=== PATIENT | female | born 1965 | race Caucasian/White ===

== ENCOUNTER 2017-02-06 00:36 | Emergency (ER) | payer MEDICAID ==
[2017-02-06 00:52] VITALS: BP 143/95
--- NOTE | 2017-02-06 01:06 | EDM.PDOC ---
ED HPI Trauma - General Chief Complaint: Lower Extremity Injury/Pain Stated Complaint: RIGHT FOOT INJURY Time Seen by Provider: 02/06/17 00:48 Source: Reports: Patient History Limitations: Reports: No limitations - History of Present Illness INITIAL COMMENTS - FREE TEXT/NARRATIVE: This is a 52-year-old female. She's been having a problem with her left knee and putting more weight on her right leg. This evening when she was walking she felt a pop in the top of her right foot and started having pain. Every time she puts weight on that right foot she has pain in the top of her foot. She denies walking on the side of the foot when this happened her on her toes when this happened. Due to the pain she comes to the ER for evaluation. She denies falling she denies any other acute symptoms at this time with her right foot. Allergies/ADRs: Allergies bee pollen Allergy (Verified 02/06/17 00:52) Hives IV contrast dye Allergy (Uncoded 02/06/17 00:52) Other Home Medications: Ambulatory Orders Diclofenac Sodium [Voltaren 1% Gel] 1 applic TOP DAILY 02/06/17 [Confirmed 02/06] Meloxicam 15 mg PO DAILY 02/06/17 [Confirmed 02/06/17] Past Medical History Musculoskeletal History: Reports: Other (see below) Other Musculoskeletal History: bone spur on knee Social & Family History - Tobacco Use Smoking Status *Q: Current Every Day Smoker Years of Tobacco use: 40 Packs/Tins Daily: 1 - Caffeine Use Caffeine Use: Reports: Soda - Recreational Drug Use Recreational Drug Use: No Review of Systems - Review of Systems Review Of Systems: See Below Constitutional: Reports: no symptoms Eyes: Reports: no symptoms Ears: Reports: no symptoms Nose: Reports: no symptoms Mouth/Throat: Reports: no symptoms Respiratory: Reports: No Symptoms Cardiovascular: Reports: no symptoms GI/Abdominal: Reports: No symptoms Musculoskeletal: Reports: other (As per history of present illness) Skin: Reports: no symptoms Neurological: Reports: No Symptoms Psychiatric: Reports: no symptoms Trauma Exam - Physical Exam Exam: See Below Exam Limited By: No limitations General Appearance: Reports: alert, WD/WN, no apparent distress Head: Reports: normocephalic Ears: Reports: normal external exam Nose: Reports: normal inspection Throat/Mouth: Reports: Normal lips, Normal voice Neck: Reports: full range of motion Respiratory Exam: Reports: no respiratory distress Back: Reports: full range of motion Extremities: Reports: no evidence of injury, other (Right foot she is tender over the base of the metatarsals mid forefoot area, there is no ankle tenderness there is no obvious swelling she is able to move her toes and neurovascular appears to be grossly intact in all of her toes) Neurologic: Reports: alert, normal mood/affect, oriented x 3 Skin: Reports: Normal color, Warm/dry - [place] Coma Score Best Eye Response ([place]): (4) open spontaneously Best Verbal Response ([place]): (5) oriented Best Motor Response ([place]): (6) obeys commands [place] Total: 15 Course - Vital Signs Last Recorded V/S: Last Vital Signs Temp 97.2 F 02/06/17 00:48 Pulse 80 02/06/17 00:48 Resp 18 02/06/17 00:48 BP 143/95 H 02/06/17 00:48 Pulse Ox 97 02/06/17 00:48 - Orders/Labs/Meds Orders: Active Orders 24 hr Category Date Time Status Foot Comp Min 3V Rt [CR] Stat Exams 02/06/17 01:03 Taken - Radiology Interpretation Free Text/Narrative:: Right foot x-ray does not show any acute fractures, she does have degenerative changes and arthritis noted - Re-Assessments/Exams Free Text/Narrative Re-Assessment/Exam: 02/06/17 02:06 I spoke to the patient regarding her x-ray results and encouraged her to stay on the meloxicam to help with the pain. Departure - Departure Time of Disposition: 02:07 Disposition: Home, Self-Care 01 Condition: good Clinical Impression: Right foot pain Arthritis of foot, right, degenerative Qualifiers: Osteoarthritis type: unspecified Qualified Code(s): M19.071 - Primary osteoarthritis, right ankle and foot Referrals: Carlotta Abarca NP [Primary Care Provider] - Rajat Dumont MD [Physician] - Forms: ED Department Discharge Additional Instructions: Be very careful with walking andwalk on your heel instead of your whole foot to ease up on the pain in your forefoot, continue with the Meloxicam to help with the arthritis and foot pain, ice it down and elevate as much as possible over the next 48 hours, if the pain is not easing up in the next 2-[address] Dumont' for reevaluation, return to the ER if needed - My Orders Last 24 Hours: My Active Orders 02/06/17 01:03 Foot Comp Min 3V Rt [CR] Stat - Assessment/Plan Last 24 Hours: My Active Orders 02/06/17 01:03 Foot Comp Min 3V Rt [CR] Stat
--- NOTE | 2017-02-08 10:35 | CR ---
Right foot: Four views of the right foot were obtained. Comparison: No previous foot study. Bunion deformity noted. Mild degenerative change seen within the first MTP joint. Plantar spur is present. Mild degenerative change noted within the midfoot. No acute fracture, dislocation or other bony abnormality is seen. Impression: 1. Bunion deformity, degenerative change and other findings. Diagnostic code #2
== END 2017-02-06 02:19 | disposition home or self-care (01) ==
LOC: JD.ED 00:36
DX: M19.071 Primary osteoarthritis, right ankle and foot (principal); F17.210 Nicotine dependence, cigarettes, uncomplicated; Z91.030 Bee allergy status; Z79.899 Other long term (current) drug therapy; Z91.041 Radiographic dye allergy status
CPT/HCPCS: 73630-26-RT; 73630-RT; 99282; 99283

== ENCOUNTER 2019-07-03 17:33 | Emergency (ER) | payer MEDICAID ==
[2019-07-03 17:45] VITALS: BP 174/91; PULSE 68
[2019-07-03] MEDS ORDERED: Sodium Chloride 0.9% 1,000 ML IV ONE (18:49)
[2019-07-03] MEDS ORDERED: Sodium Chloride 0.9% 10 ML Syringe FLUSH PRN (18:49)
[2019-07-03] MEDS ORDERED: Ondansetron 4 MG/2 ML SDV IVPUSH ONE (18:49)
--- NOTE | 2019-07-03 19:10 | EDM.PDOC ---
ED HPI GENERAL MEDICAL PROBLEM - General Chief Complaint: Gastrointestinal Problem Stated Complaint: CHEST CONGESTION COUGHING/DIARRHEA/VOMITING Time Seen by Provider: 07/03/19 18:08 Source of Information: Reports: Patient History Limitations: Reports: No Limitations - History of Present Illness INITIAL COMMENTS - FREE TEXT/NARRATIVE: Patient is a 54-year-old female who presents to the ED complaining of nausea or vomiting with intermittent chest discomfort with coughing and palpation with chest congestion, productive cough, diarrhea, and poor appetite. Patient states 3 weeks ago she was diagnosed with a sinus infection and placed on an antibiotic with no resolution over the next 3 days. Antibiotic name is unknown. Patient was evaluated 4 days later and tested for strep throat and influenza which came back negative. Patient was placed on Augmentin. Utilized Augmentin for 4 days and then stopped because she she had some allergic reaction-like symptoms: scratchy throat, felt like her throat was swelling shut, and the sensation she cannot breathe. Last took the Augmentin 07/02/2018. She used Benadryl thereafter with resolution. Starting she started developing some diarrhea and some intermittent nausea vomiting. Since then she's been unable to keep anything down. She was evaluated by a nurse practitioner earlier today with concerns that she may be dehydrated with history of poor fluid intake and DM. Patients most recent A1c was 7.1. Patient take victoza and toujeo. She is not taking novalog. Generalized Pain Score (Numeric/FACES): 6 - Related Data Allergies Allergy/AdvReac Type Severity Reaction Status Date / Time bee pollen Allergy Hives Verified 07/03/19 17:45 Iodinated Contrast Media Allergy Airway Verified 07/03/19 17:45 [Iodinated Contrast- Oral Tightness and IV Dye] IV contrast dye Allergy Severe Airway Uncoded 07/03/19 22:59 Tightness Home Meds: Home Meds Diclofenac Sodium [Voltaren 1% Gel] 1 applic TOP DAILY 02/06/17 [History] Meloxicam 15 mg PO DAILY 02/06/17 [History] Past Medical History Musculoskeletal History: Reports: Other (See Below) Other Musculoskeletal History: bone spur on knee Endocrine/Metabolic History: Reports: Diabetes, Type II Social & Family History - Tobacco Use Smoking Status *Q: Current Every Day Smoker Years of Tobacco use: 25 Packs/Tins Daily: 0.5 - Caffeine Use Caffeine Use: Reports: Soda ED ROS GENERAL - Review of Systems Review Of Systems: ROS reveals no pertinent complaints other than HPI. ED EXAM, GI/ABD - Physical Exam Exam: See Below Exam Limited By: No Limitations General Appearance: Alert, WD/WN, No Apparent Distress Ears: Normal External Exam, Normal Canal, Hearing Grossly Normal Nose: Normal Inspection Throat/Mouth: Normal Inspection, Normal Oropharynx, Normal Voice, No Airway Compromise Head: Atraumatic, Normocephalic Neck: Normal Inspection, Supple, Non-Tender, Full Range of Motion Respiratory/Chest: No Respiratory Distress, Lungs Clear, Normal Breath Sounds, No Accessory Muscle Use, Chest Non-Tender Cardiovascular: Normal Peripheral Pulses, Regular Rate, Rhythm GI/Abdominal Exam: Normal Bowel Sounds, Soft, Non-Tender, No Organomegaly Back Exam: Normal Inspection. No: CVA Tenderness (L), CVA Tenderness (R) Extremities: Normal Inspection Neurological: Alert, Oriented, CN II-XII Intact, Normal Cognition, No Motor/ Sensory Deficits Psychiatric: Normal Affect, Normal Mood Skin Exam: Warm, Dry, Intact, Normal Color, No Rash Course - Vital Signs Last Recorded V/S: Last Vital Signs Temp 97.5 F 07/03/19 17:39 Pulse 68 07/03/19 17:39 Resp 16 07/03/19 17:39 BP 174/91 H 07/03/19 17:39 Pulse Ox 98 07/03/19 17:39 - Orders/Labs/Meds Labs: Laboratory Tests 07/03/19 07/03/19 07/03/19 Range/Units 18:45 18:45 18:45 WBC 7.69 (3.98-10.04) K/mm3 RBC 4.15 (3.98-5.22) M/mm3 Hgb 14.1 (11.2-15.7) gm/dl Hct 39.5 (34.1-44.9) % MCV 95.2 H (79.4-94.8) fl MCH 34.0 H (25.6-32.2) pg MCHC 35.7 H (32.2-35.5) g/dl RDW Std Deviation 42.0 (36.4-46.3) fL Plt Count 308 (182-369) K/mm3 MPV 9.4 (9.4-12.3) fl Neutrophils % (Manual) 52 (40-60) % Band Neutrophils % 0 (0-10) % Lymphocytes % (Manual) 32 (20-40) % Atypical Lymphs % 0 % Monocytes % (Manual) 7 (2-10) % Eosinophils % (Manual) 7 H (0.7-5.8) % Basophils % (Manual) 2 H (0.1-1.2) Platelet Estimate Adequate RBC Morph Comment Normal Sodium 141 (136-145) mEq/L Potassium 3.5 (3.5-5.1) mEq/L Chloride 102 (98-107) mEq/L Carbon Dioxide 31 (21-32) mEq/L Anion Gap 11.5 (5-15) BUN 16 (7-18) mg/dL Creatinine 0.9 (0.55-1.02) mg/dL Est Cr Clr Drug Dosing 69.49 mL/min Estimated GFR (MDRD) > 60 (>60) mL/min BUN/Creatinine Ratio 17.8 (14-18) Glucose 159 H (74-106) mg/dL Calcium 9.1 (8.5-10.1) mg/dL Total Bilirubin 0.3 (0.2-1.0) mg/dL AST 12 L (15-37) U/L ALT 24 (14-59) U/L Alkaline Phosphatase 83 (46-116) U/L Troponin I < 0.017 (0.00-0.056) ng/mL C-Reactive Protein < 0.2 (<1.0) mg/dL Total Protein 6.9 (6.4-8.2) g/dl Albumin 3.8 (3.4-5.0) g/dl Globulin 3.1 gm/dL Albumin/Globulin Ratio 1.2 (1-2) Lipase 128 (73-393) U/L Urine Color Yellow (Yellow) Urine Appearance Clear (Clear) Urine pH 6.5 (5.0-8.0) Ur Specific [place] 1.020 (1.005-1.030) Urine Protein Negative (Negative) Urine Glucose (UA) Negative (Negative) Urine Ketones Negative (Negative) Urine Occult Blood Negative (Negative) Urine Nitrite Negative (Negative) Urine Bilirubin Negative (Negative) Urine Urobilinogen 0.2 (0.2-1.0) Ur Leukocyte Esterase Negative (Negative) Urine RBC 0-5 (0-5) /hpf Urine WBC 0-5 (0-5) /hpf Ur Squamous Epith Cells 0-5 (0-5) /hpf Urine Bacteria Few (FEW) /hpf Urine Mucus Not seen (FEW) /hpf C.difficile [id number] C. difficile Tox (PCR) 07/03/19 Range/Units 19:20 WBC (3.98-10.04) K/mm3 RBC (3.98-5.22) M/mm3 Hgb (11.2-15.7) gm/dl Hct (34.1-44.9) % MCV (79.4-94.8) fl MCH (25.6-32.2) pg MCHC (32.2-35.5) g/dl RDW Std Deviation (36.4-46.3) fL Plt Count (182-369) K/mm3 MPV (9.4-12.3) fl Neutrophils % (Manual) (40-60) % Band Neutrophils % (0-10) % Lymphocytes % (Manual) (20-40) % Atypical Lymphs % % Monocytes % (Manual) (2-10) % Eosinophils % (Manual) (0.7-5.8) % Basophils % (Manual) (0.1-1.2) Platelet Estimate RBC Morph Comment Sodium (136-145) mEq/L Potassium (3.5-5.1) mEq/L Chloride (98-107) mEq/L Carbon Dioxide (21-32) mEq/L Anion Gap (5-15) BUN (7-18) mg/dL Creatinine (0.55-1.02) mg/dL Est Cr Clr Drug Dosing mL/min Estimated GFR (MDRD) (>60) mL/min BUN/Creatinine Ratio (14-18) Glucose (74-106) mg/dL Calcium (8.5-10.1) mg/dL Total Bilirubin (0.2-1.0) mg/dL AST (15-37) U/L ALT (14-59) U/L Alkaline Phosphatase (46-116) U/L Troponin I (0.00-0.056) ng/mL C-Reactive Protein (<1.0) mg/dL Total Protein (6.4-8.2) g/dl Albumin (3.4-5.0) g/dl Globulin gm/dL Albumin/Globulin Ratio (1-2) Lipase (73-393) U/L Urine Color (Yellow) Urine Appearance (Clear) Urine pH (5.0-8.0) Ur Specific [place] (1.005-1.030) Urine Protein (Negative) Urine Glucose (UA) (Negative) Urine Ketones (Negative) Urine Occult Blood (Negative) Urine Nitrite (Negative) Urine Bilirubin (Negative) Urine Urobilinogen (0.2-1.0) Ur Leukocyte Esterase (Negative) Urine RBC (0-5) /hpf Urine WBC (0-5) /hpf Ur Squamous Epith Cells (0-5) /hpf Urine Bacteria (FEW) /hpf Urine Mucus (FEW) /hpf C.difficile [id number] Presumptive negative C. difficile Tox (PCR) Negative Meds: Medications Discontinued Medications Generic Name Dose Route Start Last Admin Trade Name Freq PRN Reason Stop Dose Admin Sodium Chloride 1,000 mls @ 500 mls/hr 07/03/19 18:49 07/03/19 19:23 Normal Saline IV 07/03/19 20:48 500 mls/hr ONETIME ONE Administration Ondansetron HCl 4 mg 07/03/19 18:49 07/03/19 19:23 Zofran IVPUSH 07/03/19 18:50 4 mg ONETIME ONE Administration Sodium Chloride 10 ml 07/03/19 18:49 07/03/19 19:23 Saline Flush FLUSH 10 ml ASDIRECTED PRN Administration Keep Vein Open - Re-Assessments/Exams Free Text/Narrative Re-Assessment/Exam: On exam patient does not appear in acute distress. Blood pressure 174/91, heart rate 68, temperature is 97.5, resp rate 16, SPO2 90% on room air. On exam she has no abdominal pain and lungs are clear to auscultation. Oral mucosal is moist. IV will be established with normal saline IV fluids, Zofran 4 mg IVP. Initial labs and studies include: CBC, chem 14, CRP, stool WBCs, C. difficile, lipase, troponin, UA, chest x-ray two-view, and EKG. EKG sinus rhythm rate of 65 with NE interval 118 and QTC of 489. No acute ST changes noted. CXR reviewed with Dr. Shelton. No acute findings noted. Final interpretation is pending. Labs reviewed: CBC was essentially normal. Chem 14 was essentially normal as well minus glucose 159. Troponin CRP and normal. Lipase normal. UA was negative. Stool WBCs few present. C. difficile is pending. 07/03/19 22:20 C. difficile came back negative. 2221 Reassessment, patient's vital signs are stable. She states she has some abdominal cramping. No pain. Nausea has subsided. Patient will be allowed to eat some crackers while in the emergency department. I'll discharge her home with instructions to follow-up with PCP. Suspect this is viral in etiology and will have to run its course. Per patient she has appointment scheduled for tomorrow with PCP. Return precautions were discussed with the patient. She had no further questions or concerns and agree with plan. Discharge instructions as documented. Departure - Departure Time of Disposition: 22:24 Disposition: Home, Self-Care 01 Condition: Good Clinical Impression: Diarrhea, Gastroenteritis Nausea & vomiting Qualifiers: Vomiting type: unspecified Vomiting Intractability: non-intractable Qualified Code(s): R11.2 - Nausea with vomiting, unspecified - Discharge Information Instructions: Diarrhea, Adult, Viral Gastroenteritis, Adult, [id number], Food Choices to Help Relieve Diarrhea, Adult, Dehydration, Adult, [id number], Nausea and Vomiting, Adult, Probiotics Referrals: Na Cuenca MD [Primary Care Provider] - Forms: ED Department Discharge, ED Return to Work/School Form Additional Instructions: Keep appt with PCP as scheduled for tomorrow. Stick with clear liquid diet for the next 48 hrs. May advance diet to low residue diet thereafter as tolerated. Read educational material on foods to eat with diarrhea. Utilize zofran as prescribed for nausea/vomiting. Please return to the ED as needed for any new or worsening symptoms. Stool cultures have been obtained. Please see PCP in the next 48 hours for results.
--- NOTE | 2019-07-04 08:58 | CR ---
Chest: Two views of the chest were obtained. Comparison: No prior chest x-rays available. Heart size and mediastinum are normal. Lungs are clear. Bony structures are unremarkable. Impression: 1. Nothing acute is seen on two-view chest x-ray. Diagnostic code #1
== END 2019-07-03 22:39 | disposition home or self-care (01) ==
LOC: JD.ED 17:33
DX: K52.9 Noninfective gastroenteritis and colitis, unspecified (principal); E11.9 Type 2 diabetes mellitus without complications; F17.210 Nicotine dependence, cigarettes, uncomplicated; Z79.899 Other long term (current) drug therapy; Z91.041 Radiographic dye allergy status; Z91.030 Bee allergy status
CPT/HCPCS: 36415; 71046; 80053; 81001; 83690; 84484; 85007; 85027; 86140; 87046; 87493; 89055; 93005; 96361; 96374; 99284; J2405; J7040; 87427; 99283

== ENCOUNTER 2021-09-01 17:25 | Emergency (ER) | payer MEDICAID ==
[2021-09-01] MEDS ORDERED: Sodium Chloride 0.9% 10 ML Syringe FLUSH PRN (18:29)
[2021-09-01] MEDS ORDERED: Labetalol 100 MG/20 ML MDV IVPUSH ONE (18:40)
--- NOTE | 2021-09-01 18:48 | EDM.PDOC ---
<Rahat Norris Ivan - Last Filed: 09/01/21 18:56> ED HPI GENERAL MEDICAL PROBLEM - General Chief Complaint: Cardiovascular Problem Stated Complaint: HIGH BLOOD PRESSURE Time Seen by Provider: 09/01/21 18:16 Source of Information: Reports: Patient, Provider, RN Notes Reviewed - History of Present Illness INITIAL COMMENTS - FREE TEXT/NARRATIVE: 56 yr old female sent from [facility] with concerns about Blanco, Htn for 3 to 4 days. Pt states she was changed to "short acting insulin" about 5 days ago and since that time she has been aware of Blanco, generalized achiness and inc reased BP readings. Chest feels mildly tight today. States distal legs have also been holding some fluid. Has been on meds for Htn for many yrs. Headache Pain Score (Numeric/FACES): 8 - Related Data Allergies Allergy/AdvReac Type Severity Reaction Status Date / Time metformin Allergy Unknown Other Verified 09/01/21 18:13 bee pollen Allergy Hives Verified 09/01/21 18:13 Iodinated Contrast Media Allergy Airway Verified 09/01/21 18:13 [Iodinated Contrast- Oral Tightness and IV Dye] rosuvastatin [From Crestor] Allergy Dizziness Verified 09/01/21 18:13 IV contrast dye Allergy Severe Airway Uncoded 07/03/19 22:59 Tightness Home Meds: Home Meds Diclofenac Sodium [Voltaren 1% Gel] 1 applic TOP DAILY 02/06/17 [History] Meloxicam 15 mg PO DAILY 02/06/17 [History] Acetaminophen 500 mg PO 02/23/20 [History] Alpha Lipoic Acid 600 mg PO 02/23/20 [History] Aspirin 81 mg PO DAILY 02/23/20 [History] Benzoyl Peroxide/Clindamycin [BenzaClin Gel] 1 applic TOP BID 02/23/20 [History] Blood Sugar Diagnostic [Contour] 1 each 02/23/20 [History] Cholestyramine/Sucrose [Cholestyramine Packet] 4 gm PO 02/23/20 [History] Fluticasone Propionate [Flonase] 50 mcg 02/23/20 [History] Insulin Aspart [NovoLOG] 0 unit WITHMEALSANDBED 02/23/20 [History] Insulin Detemir [Levemir Flextouch] 100 unit SQ 02/23/20 [History] Lancets [Microlet] 1 each MC 02/23/20 [History] Liraglutide [Victoza 3-Chaz] 18 mg .XX 02/23/20 [History] Ondansetron [Zofran] 4 mg PO Q6H 02/23/20 [History] Pen Needle, Diabetic [Ulticare Pen Needle] 1 each 02/23/20 [History] atorvaSTATin [Lipitor] 10 mg PO BEDTIME 02/23/20 [History] hydrOXYzine HCL [Atarax] 25 mg PO DAILY 02/23/20 [History] lisinopriL [Prinivil] 15 mg PO DAILY 02/23/20 [History] methylPREDNISolone [Methylprednisolone] 16 mg PO 02/23/20 [History] Past Medical History Musculoskeletal History: Reports: Other (See Below) Other Musculoskeletal History: bone spur on knee Endocrine/Metabolic History: Reports: Diabetes, Type II Social & Family History - Caffeine Use Caffeine Use: Reports: Soda ED ROS GENERAL - Review of Systems Review Of Systems: See Below Constitutional: Reports: Malaise, Fatigue. Denies: Fever, Chills HEENT: Reports: No Symptoms Respiratory: Denies: Shortness of Breath, Cough Cardiovascular: Reports: Chest Pain, Edema (mild distal leg) GI/Abdominal: Denies: Abdominal Pain, Nausea, Vomiting Musculoskeletal: Denies: Shoulder Pain, Arm Pain, Back Pain Skin: Reports: No Symptoms Neurological: Reports: Headache. Denies: Trouble Speaking, Weakness, Gait Disturbance ED EXAM, GENERAL - Physical Exam Exam: See Below General Appearance: Alert, No Apparent Distress Eye Exam: Bilateral Eye: PERRL, Other (R eye deviates to R, pt states this is normal for her) Throat/Mouth: Normal Inspection Head: Atraumatic Neck: Supple, Other (no JVD) Respiratory/Chest: No Respiratory Distress, Lungs Clear, Normal Breath Sounds Cardiovascular: Regular Rate, Rhythm GI/Abdominal: Soft, Non-Tender. No: Guarding Extremities: Pedal Edema (mild bilat distal leg and ankle) Neurological: Alert, Oriented, No Motor/Sensory Deficits Skin Exam: Warm, Dry, Normal Color #1 Interpretation EKG Date: 09/01/21 Rhythm: NSR P-Wave: Present QRS: Normal ST-T: Other (mild t wave flattening mult leads) Course - Re-Assessments/Exams Free Text/Narrative Re-Assessment/Exam: 09/01/21 19:05. Have ordered appropriate labs, labetalol 20 mg IV. We are now at change of shift, will be awhile before labs are back, will transfer care to Dr Mario at this time. Departure - Departure Disposition: Home, Self-Care 01 Clinical Impression: Elevated blood pressure reading Referrals: Na Cuenca MD [Primary Care Provider] - Forms: ED Department Discharge Additional Instructions: You were seen in the emergency room for 3 to 4 days of a headache with elevated blood pressure. Work-up in the ER included several blood tests, a chest x-ray, and an ECG. Your entire work-up was unremarkable. You are not anemic. There is no sign of an infection. No electrolyte abnormalities were found. Your ECG was normal. Your chest x-ray was normal. You were treated with the IV blood pressure medication labetalol in the ER. Your most recent blood pressure is down to 150/90. Going forward, we recommend that you check your blood pressure only 2-3 times a week, and only under restful conditions = you have been sitting for at least 5, and preferably 15 minutes, that the arm that you are checking your blood pressure in is supported, with the blood pressure cuff at the height of your heart, and you are not in pain, you are not sick, and you are not anxious. Write the numbers down. Continue this for 2 to 3 weeks, then present those numbers to your PCP when you follow-up. At that time, she can decide if modification of your blood pressure and medications requires modification. You may take [id number] acetaminophen as needed for discomfort. If any other problems, please do not hesitate to return to the ER. Sepsis Event Note (ED) - Evaluation Sepsis Screening Result: No Definite Risk <Silverio Mario - Last Filed: 09/01/21 21:24> Course - Vital Signs Last Recorded V/S: Last Vital Signs Temp 36.2 C 09/01/21 18:13 Pulse 69 09/01/21 19:13 Resp 18 09/01/21 18:13 BP 181/93 H 09/01/21 19:13 Pulse Ox 98 09/01/21 19:13 - Orders/Labs/Meds Orders: Active Orders 24 hr Category Date Time Status Peripheral IV Care [RC] . DIRECTED Care 09/01/21 18:30 Active Sodium Chloride 0.9% [Saline Flush] Med 09/01/21 18:29 Active 10 ml FLUSH ASDIRECTED PRN Peripheral IV Insertion Adult [OM.PC] Stat Oth 09/01/21 18:30 Ordered Medication Orders Sodium Chloride (Sodium Chloride 0.9% 10 Ml Syringe) 10 ml FLUSH ASDIRECTED PRN PRN Reason: Keep Vein Open Last Admin: 09/01/21 18:53 Dose: 10 ml Documented by: MORRO Labs: Laboratory Tests 09/01/21 09/01/21 Range/Units 18:44 18:44 WBC 7.87 (3.98-10.04) K/mm3 RBC 3.78 L (3.98-5.22) M/mm3 Hgb 12.8 (11.2-15.7) gm/dl Hct 38.5 (34.1-44.9) % MCV 101.9 H D (79.4-94.8) fl MCH 33.9 H (25.6-32.2) pg MCHC 33.2 (32.2-35.5) g/dl RDW Std Deviation 45.1 (36.4-46.3) fL Plt Count 258 (182-369) K/mm3 MPV 9.6 (9.4-12.3) fl Neut % (Auto) 52.0 (34.0-71.1) % Lymph % (Auto) 32.4 (19.3-51.7) % [place] % (Auto) 9.8 (4.7-12.5) % Eos % (Auto) 5.0 (0.7-5.8) Baso % (Auto) 0.8 (0.1-1.2) % Neut # (Auto) 4.10 (1.56-6.13) K/mm3 Lymph # (Auto) 2.55 (1.18-3.74) K/mm3 [place] # (Auto) 0.77 H (0.24-0.36) K/mm3 Eos # (Auto) 0.39 H (0.04-0.36) K/mm3 Baso # (Auto) 0.06 (0.01-0.08) K/mm3 Sodium 145 (136-145) mEq/L Potassium 3.5 (3.5-5.1) mEq/L Chloride 109 H (98-107) mEq/L Carbon Dioxide 32 (21-32) mEq/L Anion Gap 7.5 (5-15) BUN 12 (7-18) mg/dL Creatinine 0.8 (0.55-1.02) mg/dL Est Cr Clr Drug Dosing TNP Estimated GFR (MDRD) > 60 (>60) mL/min BUN/Creatinine Ratio 15.0 (14-18) Glucose 83 (70-99) mg/dL Calcium 8.5 (8.5-10.1) mg/dL Total Bilirubin 0.3 (0.2-1.0) mg/dL AST 21 (15-37) U/L ALT 30 (14-59) U/L Alkaline Phosphatase 66 (46-116) U/L Troponin I < 0.017 (0.00-0.056) ng/mL Total Protein 6.4 (6.4-8.2) g/dl Albumin 3.4 (3.4-5.0) g/dl Globulin 3.0 gm/dL Albumin/Globulin Ratio 1.1 (1-2) Meds: Medications Generic Name Dose Route Start Last Admin Trade Name Freq PRN Reason Stop Dose Admin Sodium Chloride 10 ml 09/01/21 18:29 09/01/21 18:53 Sodium Chloride 0.9% 10 Ml Syringe FLUSH 10 ml ASDIRECTED PRN Administration Keep Vein Open Discontinued Medications Generic Name Dose Route Start Last Admin Trade Name Freq PRN Reason Stop Dose Admin Labetalol HCl 20 mg 09/01/21 18:40 09/01/21 18:52 Labetalol 100 Mg/20 Ml Mdv IVPUSH 09/01/21 18:41 20 mg ONETIME ONE Administration Protocol - Re-Assessments/Exams Free Text/Narrative Re-Assessment/Exam: 09/01/21 21:[address] Norris, for change of shift. I agree with his history and physical examination as documented. Portable chest x-ray is read by Dr. Engle as: 1. Nothing acute is seen on portable chest x-ray. The patient's CBC is unremarkable. Her CMP is unremarkable. Her troponin is undetectably low. At present, the patient's BP is 150/90, with a HR of 9 bpm. Her SpO2 is 98% on room air. 09/01/21 21:16 Test results discussed with the patient. I will discharge her home with the recommendation that she check her blood pressure 2-3 times a week, and only under restful conditions, with the arm that the blood pressure cuff is on being supported, with the blood pressure cuff at the height of her heart. She is to write, and only under restful conditions. She is to write the numbers down, and after a few weeks, presented to her PCP when she follows up. At that time, they can decide if her current blood pressure medication regimen requires modification. The patient expressed understanding. Departure - Departure Time of Disposition: 21:17 Condition: Good Sepsis Event Note (ED) - Focused Exam Vital Signs: Vital Signs Temp Pulse Resp BP Pulse Ox 09/01/21 19:13 69 181/93 H 98 09/01/21 18:13 36.2 C 68 18 204/101 H 99
[2021-09-01 19:14] VITALS: BP 181/93; PULSE 69
--- NOTE | 2021-09-01 20:17 | CR ---
Chest: Portable view of the chest was obtained. Comparison: Prior chest x-ray on 07/03/19. Heart size and mediastinum are normal. Lungs are clear. Bony structures show nothing acute. Impression: 1. Nothing acute is seen on portable chest x-ray. Diagnostic code #1
[2021-09-01] MEDS ORDERED: LORazepam 1 MG Tab PO ONE (21:01)
== END 2021-09-01 21:35 | disposition home or self-care (01) ==
LOC: JD.ED 17:25
DX: I10 Essential (primary) hypertension (principal); E11.9 Type 2 diabetes mellitus without complications; Z91.030 Bee allergy status; Z91.041 Radiographic dye allergy status; Z88.8 Allergy status to other drugs, medicaments and biological substances; Z79.82 Long term (current) use of aspirin; Z79.899 Other long term (current) drug therapy
CPT/HCPCS: 36415; 71045; 80053; 84484; 85025; 93005; 96374; 99284; J3490

== ENCOUNTER 2024-05-03 13:56 | Inpatient (IN) | payer SELFPAY ==
[2024-05-03 15:33] LABS: BASOPHILS ABSOLUTE AUTO 0.1 K/mm3 (0.0-0.2); BASOPHILS PERCENT AUTO 0.6 % (0.0-1.0); EOSINOPHILS ABSOLUTE AUTO 0.2 K/mm3 (0.0-0.4); EOSINOPHILS PERCENT AUTO 2.5 % (0.0-6.0); HEMATOCRIT 31.6 % (37.0-47.0); HEMOGLOBIN 11.3 gm/dl (12.0-16.0); IMMATURE GRAN ABSOLUTE AUTO 0.01 K/mm3 (0.00-0.05); IMMATURE GRAN PERCENT AUTO 0.1 % (0.0-0.4); LYMPHOCYTES ABSOLUTE AUTO 0.6 K/mm3 (1.0-4.8); LYMPHOCYTES PERCENT AUTO 7.1 % (24.0-44.0); MEAN CORPUSCULAR HEMOGLOBIN 33.4 pg (28.0-32.0); MEAN CORPUSCULAR HGB CONC 35.8 g/dl (32.0-36.0); MEAN CORPUSCULAR VOLUME 93.5 fl (83.0-99.0); MEAN PLATELET VOLUME 8.6 fl (9.4-12.3); MONOCYTES ABSOLUTE AUTO 0.7 K/mm3 (0.0-0.8); MONOCYTES PERCENT AUTO 8.1 % (0.0-8.0); NEUTROPHILS ABSOLUTE AUTO 6.9 K/mm3 (1.8-7.7); NEUTROPHILS PERCENT AUTO 81.6 % (41.0-71.0); PLATELET COUNT,PLT 267 K/mm3 (150-400); RED BLOOD CELL COUNT 3.38 M/mm3 (4.10-5.30); WHITE BLOOD CELL COUNT,WBC 8.41 K/mm3 (3.9-11.3)
[2024-05-03] MEDS: Diphtheria,Pertussis(Acell),Tetanus Vaccine 0.5 ML Syringe IM ONE (15:49)
[2024-05-03 16:06] LABS: APPEARANCE,URINE SLT CLOUDY (Clear); BILIRUBIN,URINE NEGATIVE (Negative); COLOR,URINE YELLOW (Yellow); GLUCOSE,URINE NEGATIVE (Negative); KETONES,URINE 1+ (Negative); LEUKOCYTE ESTERASE,URINE 1+ (Negative); NITRITE,URINE NEGATIVE (Negative); OCCULT BLOOD,URINE TRACE-LYSED (Negative); PROTEIN,URINE TRACE (Negative); UROBILINOGEN,URINE 0.2 (0.2-1.0)
[2024-05-03 16:10] LABS: A/G RATIO 0.9 (1-2); ALBUMIN 3.1 g/dl (3.4-5.0); ANION GAP 10.7 (5-15); BILIRUBIN TOTAL 0.5 mg/dL (0.2-1.0); BUN/CREATININE RATIO 14.5 (14-18); CALCIUM 8.9 mg/dL (8.5-10.1); CREATININE 1.1 mg/dL (0.55-1.02); EST CRCL DRUG DOSING (CG) 53.55 mL/min; MAGNESIUM 1.7 mg/dL (1.8-2.4); POTASSIUM,K 2.7 mEq/L (3.5-5.1); PROTEIN TOTAL,TP 6.5 g/dl (6.4-8.2)
[2024-05-03 16:15] LABS: BARBITURATE SCREEN,URINE NEGATIVE (CUTOFF=200); BENZODIAZEPINES SCREEN,URINE NEGATIVE (CUTOFF=150); BUPRENORPHINE SCREEN,URINE NEGATIVE (CUTOFF=10); METHADONE SCREEN, URINE NEGATIVE (CUTOFF=200); METHAMPHETAMINES SCREEN, URINE NEGATIVE (CUTOFF=500); OXYCODONE SCREEN,URINE NEGATIVE (CUT0FF=100); THC SCREEN,URINE 20 NG/ML NEGATIVE (CUTOFF=50)
[2024-05-03 16:18] LABS: BACTERIA,URINE MODERATE /hpf (FEW); MUCUS,URINE MODERATE /hpf (FEW); RBC,URINE 0-5 /hpf (0-5)
[2024-05-03 16:28] LABS: AMPHETAMINES SCREEN, URINE NEGATIVE (CUTOFF=500)
[2024-05-03] MEDS: Sodium Chloride 0.9% 1,000 ML IV ONE (17:18)
[2024-05-03] MEDS: Potassium Chloride 20 MEQ Tab.ER PO ONE (17:21)
[2024-05-03] MEDS: Potassium Chloride 10 MEQ in Premix Bag 1 BAG IV ONE ×6 (17:22→22:07)
[2024-05-03] MEDS: cefTRIAXone 1 GM in Sodium Chloride 0.9% 100 ML IV ONE (17:28)
[2024-05-03] MEDS: Magnesium Sulfate (4.06 MEQ/ML) 5 GM/10 ML SDV IV ONE (18:12)
[2024-05-03] MEDS: Magnesium Sulfate/Water 50 ML ONE (18:12)
[2024-05-03] MEDS: Magnesium Sulfate/Water 2 GM in Premix Bag 1 BAG IV ONE (18:13)
[2024-05-03] MEDS ORDERED: Gabapentin 100 MG Cap PO PRN ×2 (18:47→18:49)
[2024-05-03] MEDS ORDERED: Sennosides/Docusate Sodium 50-8.6 MG Tab PO PRN (19:11)
[2024-05-03] MEDS ORDERED: Ondansetron 4 MG Tab.DIS PO PRN (19:11)
[2024-05-03] MEDS: Nicotine 14 MG/24 Hr Patch TRDERM SCH ×2 (21:14→21:17)
[2024-05-03] MEDS: Insulin Lispro 100 Unit/ML 3 ML KwikPen SUBCUT SCH (21:15)
[2024-05-03] MEDS: Morphine 2 MG/ML SYRINGE IVPUSH PRN (22:03)
[2024-05-04 04:55] LABS: HEMATOCRIT 31.4 % (37.0-47.0); HEMOGLOBIN 11.1 gm/dl (12.0-16.0); MEAN CORPUSCULAR HEMOGLOBIN 32.7 pg (28.0-32.0); MEAN CORPUSCULAR HGB CONC 35.4 g/dl (32.0-36.0); MEAN CORPUSCULAR VOLUME 92.6 fl (83.0-99.0); MEAN PLATELET VOLUME 9.1 fl (9.4-12.3); PLATELET COUNT,PLT 275 K/mm3 (150-400); RED BLOOD CELL COUNT 3.39 M/mm3 (4.10-5.30); WHITE BLOOD CELL COUNT,WBC 6.31 K/mm3 (3.9-11.3)
[2024-05-04 05:38] LABS: A/G RATIO 0.8 (1-2); ALBUMIN 2.8 g/dl (3.4-5.0); ANION GAP 11.2 (5-15); BILIRUBIN TOTAL 0.4 mg/dL (0.2-1.0); CALCIUM 8.6 mg/dL (8.5-10.1); EST CRCL DRUG DOSING (CG) 58.91 mL/min; POTASSIUM,K 3.2 mEq/L (3.5-5.1); PROTEIN TOTAL,TP 6.3 g/dl (6.4-8.2); TSH 1.33 uIU/mL (0.358-3.74)
[2024-05-04] MEDS: oxyCODONE 5 MG Tab PO PRN (07:43)
[2024-05-04] MEDS: Potassium Chloride 20 MEQ Tab.ER PO ONE (07:43)
[2024-05-04] MEDS: Enoxaparin 40 MG/0.4 ML Syringe SUBCUT SCH (11:03)
[2024-05-04] MEDS ORDERED: tiZANidine 4 MG Tab PO PRN (17:10)
[2024-05-04] MEDS ORDERED: Dicyclomine 10 MG Cap PO PRN (17:10)
[2024-05-04] MEDS ORDERED: hydrOXYzine HCl 25 MG Tab PO PRN (17:10)
[2024-05-04] MEDS ORDERED: [UNRECOGNIZED DRUG - OTHER] PO SCH (17:15)
[2024-05-04] MEDS ORDERED: Hydrochlorothiazide 25 MG Tab PO SCH (17:15)
[2024-05-04] MEDS: Sertraline 50 MG Tab PO SCH (17:36)
[2024-05-04] MEDS: Gabapentin 300 MG Cap PO SCH (17:36)
[2024-05-04] MEDS: Aspirin 81 MG Tab.Chew PO SCH (17:37)
[2024-05-04] MEDS: Lisinopril 10 MG Tab PO SCH (17:37)
[2024-05-04] MEDS: Anastrozole 1 MG Tab PO SCH (17:38)
[2024-05-04] MEDS: atorvaSTATin 40 MG Tab PO SCH (20:29)
[2024-05-04] MEDS: Melatonin 3 MG Tab PO PRN (20:29)
[2024-05-04] MEDS ORDERED: atorvaSTATin 20 MG Tab PO SCH (21:00)
[2024-05-05] MEDS: Acetaminophen 325 MG Tab PO PRN (04:37)
[2024-05-05 05:28] LABS: ANION GAP 12.9 (5-15); BUN/CREATININE RATIO 15.6 (14-18); CALCIUM 8.6 mg/dL (8.5-10.1); CREATININE 0.9 mg/dL (0.55-1.02); EST CRCL DRUG DOSING (CG) 65.45 mL/min; MAGNESIUM 1.6 mg/dL (1.8-2.4); POTASSIUM,K 3.9 mEq/L (3.5-5.1)
[2024-05-05] MEDS: Potassium Chloride 20 MEQ Tab.ER PO ONE (11:19)
[2024-05-05] MEDS: Magnesium Sulfate/Water 2 GM in Premix Bag 1 BAG IV ONE (11:19)
[2024-05-05 16:43] VITALS: BP 143/74; PULSE 60
== END 2024-05-05 14:25 | disposition home or self-care (01) | DRG 641 ==
LOC: JD.ED 13:56 → JD.MS 17:08
PROVIDERS: ADMIT Student in an Organized Health Care Education/Training Program; ATTEND Student in an Organized Health Care Education/Training Program
PROC: 3E0234Z Introduction of Serum, Toxoid and Vaccine into Muscle, Percutaneous Approach (ICD-10-PCS; principal; 2024-05-03)
DX: E87.6 Hypokalemia (principal); S06.9X9A Unspecified intracranial injury with loss of consciousness of unspecified duration, initial encounter; N17.9 Acute kidney failure, unspecified; S42.212A Unspecified displaced fracture of surgical neck of left humerus, initial encounter for closed fracture; S42.252A Displaced fracture of greater tuberosity of left humerus, initial encounter for closed fracture; N39.0 Urinary tract infection, site not specified; E87.1 Hypo-osmolality and hyponatremia; I10 Essential (primary) hypertension; Z23 Encounter for immunization; T50.2X5A Adverse effect of carbonic-anhydrase inhibitors, benzothiadiazides and other diuretics, initial encounter; E78.5 Hyperlipidemia, unspecified; F32.A Depression, unspecified; E11.40 Type 2 diabetes mellitus with diabetic neuropathy, unspecified; E83.42 Hypomagnesemia; M25.572 Pain in left ankle and joints of left foot; F17.210 Nicotine dependence, cigarettes, uncomplicated; Z85.3 Personal history of malignant neoplasm of breast; Z88.8 Allergy status to other drugs, medicaments and biological substances; Z79.4 Long term (current) use of insulin; Z79.82 Long term (current) use of aspirin; Z91.030 Bee allergy status; Z91.041 Radiographic dye allergy status; Z90.10 Acquired absence of unspecified breast and nipple; Z79.899 Other long term (current) drug therapy; W01.10XA Fall on same level from slipping, tripping and stumbling with subsequent striking against unspecified object, initial encounter
CPT/HCPCS: 36415; 70450; 70450-26; 72125; 72125-26; 73060-26-LT; 73060-LT; 73090-26-LT; 73090-LT; 73200-26-LT; 73200-LT; 73610-26-LT; 73610-LT; 76377; 80048; 80053; 80306; 80307; 81001; 82947; 83735; 84100; 84443; 84484; 85025; 85027; 87086; 90471; 90715; 93005; 93010; 93306; 93880; 93880-26; 99285; 99285-25; A9270-GY; J0696; J1650; J1815; J2270; J3475; J3480; J3490; J7030